=== PATIENT | female | born 1980 | race Caucasian/White ===

== ENCOUNTER 2021-07-15 11:23 | Emergency (ER) | payer OTHER ==
[~2021-07-15] VITALS: Ht 157.4 cm; Wt 68.0 kg
[~2021-07-15 11:23] MED LIST: BENADRYL25 MG PO; MEDROL DOSEPAK4 MG PO; OVRAL-21 50 MCG1 TAB PO; TRAMADOL HCL50 MG PO; TRIMOX500 MG PO
[2021-07-15 11:44] VITALS: BP 148/81
[2021-07-15 12:43] LABS: BASO # 0.1 10*3/uL (0.0-0.1); BASO % 0.9 % (0.0-1.0); EOS % 0.3 % (1.0-4.0); HEMATOCRIT 38.7 % (37.0-47.0); LYMPH # 1.8 10*3/uL (1.3-4.4); LYMPH % 24.5 % (27.0-41.0); MEAN CELL VOLUME 98.7 fl (81.0-99.0); MEAN CORPUSCULAR HGB 34.2 pg (27.0-31.0); MEAN CORPUSCULAR HGB CONC 34.6 g/dl (33.0-37.0); MEAN PLATELET VOLUME 9.8 fl (9.6-12.3); MONO # 0.3 10*3/uL (0.1-1.0); MONO % 4.6 % (3.0-9.0); NEUT # 5.2 10*3/uL (2.3-7.9); NEUT % 69.4 % (47.0-73.0); PLATELET COUNT AUTOMATED 313 10*3/uL (130-400); RED BLOOD COUNT 3.92 10*6/uL (4.10-5.10); RED CELL DISTRI WIDTH 12.5 % (0-14.5); WHITE BLOOD COUNT 7.4 10*3/uL (4.8-10.8)
[2021-07-15 12:58] LABS: ALKALINE PHOSPHATASE 92 U/L (45-117); BUN 5 mg/dl (7-24); CHLORIDE 109 mmol/L (98-107); CREATININE 0.73 mg/dL (0.55-1.02); POTASSIUM 3.4 mmol/L (3.5-5.1); SGOT/AST 15 IU/L (3-35); SGPT/ALT 17 U/L (12-78); SODIUM 137 mmol/L (136-145); TOTAL PROTEIN 7.2 gm/dL (6.4-8.2)
[2021-07-15] MEDS ORDERED: FLONASE ALLERG9.9 ML NAS (16:13)
[2021-07-15] MEDS ORDERED: AUGMENTIN 875-875 MG PO (16:13)
== END 2021-07-15 16:25 | disposition left against medical advice (07) ==
LOC: ED 11:23
PROVIDERS: Physician Assistant
DX: R51.9 Headache, unspecified (principal); Z98.51 Tubal ligation status

== ENCOUNTER → 2023-08-03 | Outpatient (CLI) | payer OTHER ==
[~2023-08-03] MED LIST changes: +AUGMENTIN 875-875 MG PO; +FLONASE ALLERG9.9 ML NAS
== END | disposition home or self-care (01) ==
LOC: MAMMO 01:17
PROVIDERS: ATTEND Internal Medicine Nephrology
DX: Z12.31 Encounter for screening mammogram for malignant neoplasm of breast (principal); N64.89 Other specified disorders of breast